=== PATIENT | male | born 1985 | race Caucasian/White ===

== ENCOUNTER 2018-01-30 09:14 | Emergency (ER) | payer BC ==
[2018-01-30 09:38] VITALS: BP 123/74
--- NOTE | 2018-01-30 10:05 | UC ---
Throat Pain/Nasal Bal HPI - HPI Summary HPI Summary: Patient has had sore throat and stuffiness for the past three days - History of Current Complaint Chief Complaint: UCRespiratory Stated Complaint: SORE THROAT Time Seen by Provider: 01/30/18 09:40 Hx Obtained From: Patient Onset/Duration: Gradual Onset, Lasting Days Severity: Severe Pain Intensity: 8 Associated Signs & Symptoms: Positive: Dysphagia, Hoarseness, Sinus Discomfort - Allergies/Home Medications Allergies/Adverse Reactions: Allergies Allergy/AdvReac Type Severity Reaction Status Date / Time No Known Allergies Allergy Verified 01/30/18 09:32 PMH/Surg Hx/FS Hx/Imm Hx Previously Healthy: Yes - Surgical History Surgical History: Yes Surgery Procedure, Year, and Place: RIGHT KNEE SX - Family History Known Family History: Positive: Hypertension - Social History Alcohol Use: Occasionally Substance Use Type: None Smoking Status (MU): Never Smoked Tobacco - Immunization History Most Recent Influenza Vaccination: Not the Season Review of Systems Constitutional: Negative Skin: Negative Eyes: Negative ENT: Sore Throat, Sinus Congestion Respiratory: Cough Cardiovascular: Negative Gastrointestinal: Negative Genitourinary: Negative Motor: Negative Neurovascular: Negative Musculoskeletal: Negative Neurological: Negative Psychological: Negative Is Patient Immunocompromised?: No All Other Systems Reviewed And Are Negative: Yes Physical Exam Triage Information Reviewed: Yes Appearance: Well-Nourished, Ill-Appearing, Pain Distress Vital Signs: Initial Vital Signs Temp 98 F 01/30/18 09:32 Pulse 76 01/30/18 09:32 Resp 16 01/30/18 09:32 BP 123/74 01/30/18 09:32 Pulse Ox 98 01/30/18 09:32 Vital Signs Reviewed: Yes Eye Exam: Normal ENT: Positive: Pharyngeal erythema, TM bulging, Tonsillar swelling, Tonsillar exudate Dental Exam: Normal Neck exam: Normal Neck: Positive: Supple, Nontender, No Lymphadenopathy Respiratory Exam: Normal Respiratory: Positive: Chest non-tender, Lungs clear, Normal breath sounds Cardiovascular Exam: Normal Cardiovascular: Positive: RRR, No Murmur, Pulses Normal Abdominal Exam: Normal Abdomen Description: Positive: Nontender, No Organomegaly, Soft Bowel Sounds: Positive: Present Musculoskeletal Exam: Normal Neurological Exam: Normal Psychological Exam: Normal Skin Exam: Normal Throat Pain/Nasal Course/Dx - Course Course Of Treatment: hx obtained, exam performed ,meds reviewed, rapid strep positive - Differential Dx/Diagnosis Differential Diagnosis/HQI/PQRI: Otitis Media, Pharyngitis, Sinusitis, URI Provider Diagnoses: strep pharyngitis. nasal congestion Discharge - Sign-Out/Discharge Documenting (check all that apply): Discharge - Discharge Plan Condition: Stable Disposition: HOME Prescriptions: Amoxicillin PO (*) [Amoxicillin 875 MG (*)] 875 mg PO BID #20 tab Patient Education Materials: Strep Throat (DC) Referrals: Mayela BOWEN,[place] Johns [Primary Care Provider] - Additional Instructions: 1. Take the medication as prescribed. 2. Increase fluid intake, salt water gargles 3. follow up if symptoms are nit improving. - Billing Disposition and Condition Condition: STABLE Disposition: HOME
== END 2018-01-30 10:08 | disposition home or self-care (01) ==
LOC: UCCORT 09:14
DX: J02.0 Streptococcal pharyngitis (principal)
CPT/HCPCS: 87651; 99212; G0463

== ENCOUNTER 2019-03-20 10:37 | Emergency (ER) | payer BC ==
[2019-03-20 10:46] VITALS: BP 126/70
--- NOTE | 2019-03-20 10:56 | UC ---
Skin Complaint HPI - HPI Summary HPI Summary: approx 7 days ago started w/ an itchy feeling then noticed a blistery rash. it has since scabbed over but feels it is very painful. - History of Current Complaint Chief Complaint: UCRash Time Seen by Provider: 03/20/19 10:39 Stated Complaint: RASH Hx Obtained From: Patient Onset/Duration: Gradual Onset Pain Intensity: 3 Pain Scale Used: 0-10 Numeric Location: Other - back Character: Painful Aggravating Factor(s): Clothing, Touch Alleviating Factor(s): Nothing - Allergy/Home Medications Allergies/Adverse Reactions: Allergies Allergy/AdvReac Type Severity Reaction Status Date / Time No Known Allergies Allergy Verified 03/20/19 10:46 Home Medications: Home Medications Venlafaxine CAP (NF) [Effexor CAP (NF)] 75 mg 03/20/19 [History] PMH/Surg Hx/FS Hx/Imm Hx Psychological History: Anxiety - Surgical History Surgical History: Yes Surgery Procedure, Year, and Place: RIGHT KNEE SX - Family History Known Family History: Positive: Hypertension - Social History Alcohol Use: Rare Substance Use Type: None Smoking Status (MU): Never Smoked Tobacco - Immunization History Most Recent Influenza Vaccination: Not the Season Review of Systems All Other Systems Reviewed And Are Negative: Yes Constitutional: Negative: Fever Skin: Positive: Rash Respiratory: Negative: Negative Cardiovascular: Negative: Negative Neurological: Negative: Headache Physical Exam Triage Information Reviewed: Yes Appearance: Well-Appearing Vital Signs: Initial Vital Signs Temp 98.4 F 03/20/19 10:42 Pulse 71 03/20/19 10:42 Resp 18 03/20/19 10:42 BP 126/70 03/20/19 10:42 Pulse Ox 98 03/20/19 10:42 Vital Signs Reviewed: Yes Respiratory: Positive: No respiratory distress Neurological: Positive: Alert Skin: Positive: Rashes - dried scabbed and healed over rash on R side ; lower back. +tender Course/Dx - Course Course Of Treatment: healed shingles rash on R lower back. has residual post herpetic neuralgia which he wanted something topical for. plan is to rx lidocaine for now and have him f/u w/ pcp if not improving. vitals good. - Differential Diagnoses - Skin Complaint Differential Diagnoses: Varicella Zoster, Viral Exanthem, Other - Diagnoses Provider Diagnosis: Post herpetic neuralgia, Shingles Discharge - Sign-Out/Discharge Documenting (check all that apply): Patient Departure All imaging exams completed and their final reports reviewed: No Studies - Discharge Plan Condition: Good Disposition: HOME Prescriptions: Lidocaine 4% GEL* [Topicaine 4% GEL*] 1 applic TOPICAL DAILY #1 tube Patient Education Materials: Shingles (ED) Referrals: Mayela BOWEN,[place] Johns [Primary Care Provider] - Additional Instructions: follow up with your pcp if worsening. - Billing Disposition and Condition Condition: GOOD Disposition: Home
== END 2019-03-20 11:10 | disposition home or self-care (01) ==
LOC: UCEAST 10:37
DX: B02.29 Other postherpetic nervous system involvement (principal); B02.9 Zoster without complications; F41.9 Anxiety disorder, unspecified
CPT/HCPCS: 99212; G0463